=== PATIENT | male | born 1940 | race Caucasian/White ===

== ENCOUNTER → 2016-10-05 11:12 | Emergency (ER) | payer OTHER ==
[2016-10-05 10:44] LABS: BASOPHILS 0.6 %; BASOPHILS ABSOLUTE 0.05 10/3/uL (0.0-0.16); EOSINOPHILS 2.1 %; EOSINOPHILS ABSOLUTE 0.19 10/3/uL (0.0-0.53); ER CBC TAT 0 Hrs 03 Mins; IMMATURE GRANULOCYTES 0.2 %; IMMATURE GRANULOCYTES ABSOLUTE 0.02 10/3/uL (0.0-0.11); LYMPHOCYTES 18.2 %; LYMPHOCYTES ABSOLUTE 1.61 10/3/uL (0.67-4.30); MEAN CORPUSCULAR VOLUME 82.6 fL (80-100); MEAN PLATELET VOLUME 9.5 fL (9.2-13.0); MONOCYTES 8.5 %; MONOCYTES ABSOLUTE 0.75 10/3/uL (0.21-1.20); NEUTROPHILS 70.4 %; NEUTROPHILS ABSOLUTE 6.22 10/3/uL (2.02-8.40); RBC DISTRIBUTION WIDTH 16.6 % (12.0-16.0); WHITE BLOOD CELLS 8.8 10/3/uL (4.5-10.5)
[2016-10-05 10:46] LABS: HEMATOCRIT 40.4 % (40.0-51.0); HEMOGLOBIN 13.4 g/dL (13.6-17.8); MANUAL DIFF NO %; MEAN CORPUS HGB CONC 33.2 g/dL (32.0-36.0); MEAN CORPUSCULAR HEMOGLOB 27.4 pg (26.0-34.0); PLATELET COUNT 244 10/3/uL (150-400); RED CELL COUNT 4.89 10/6/uL (4.7-6.1)
[~2016-10-05 11:12] MED LIST: ADVAIR250 INH; AMARYL1 MG PO; AMARYL4 PO; AT25 PO; BUM1 PO; BUM2 PO; C2 PO; C5 PO; CEFADROXIL1 GM PO; CEFAZ1 IV; CLARIT10 PO; COUMADIN3 MG PO; COUMADIN4 MG PO; CYANO1000T PO; DUONEB INH; FERROUS SULF325 M1 PO; FLOMAX4 PO; HYDROCORT12 TOP; JANTOVEN1 MG PO; JANUVIA100 MG PO; KDUR20 PO; KENALOG CREAM 080 GM T; KENALOG CREAM 080 GM TOP; KLOR-CON M2020 MEQ PO; L20 PO; L40 PO; L80 PO; LACT30UDL PO; LOFIBRA160 MG PO; LOP25 PO; LOP50 PO; LORT7 PO; LORTAB10 PO; LOSARTAN PO; MAGONATE PO; MAGOX4 PO; MAGTRATE500 MG PO; MOMUD PO; MULTIVITAMI1 PO; MYCOSOINT TOP; NEUR300 PO; NIZORALCRM TOP; NORCO1 TA2; P20 PO; PRILOSEC40 MG PO; PRIN5 PO; SLOW MAG; Slow Mag PO; TRICOR145 PO; VITAMIN A8000 UNIT PO; VITAMIN B-121000 MC1 SL; VITAMIN D1000 UNI1 PO; VITAMIN D31000 UNIT PO; VITC500 PO; Z100 PO; ZAROX2.5B PO; ZOCOR40 PO; ZYRTEC ALLGY10 MG PO; [UNRECOGNIZED DRUG - REMARK] TOP
[2016-10-05 11:41] LABS: SED RATE 43 MM/HR (0-15)
== END | disposition home or self-care (01) ==
LOC: ER 11:12
PROVIDERS: Physician Assistant
DX: M10.9 Gout, unspecified (principal); Z79.899 Other long term (current) drug therapy; Z88.8 Allergy status to other drugs, medicaments and biological substances; Z79.01 Long term (current) use of anticoagulants
CPT/HCPCS: 84550; 85025; 85652; 96372; 99283; A9270-GY